=== PATIENT | male | born 1970 | race Caucasian/White ===

== ENCOUNTER 2022-10-25 09:13 | Emergency (ER) | payer OTHER ==
[~2022-10-25] VITALS: Ht 175.3 cm; Wt 71.7 kg
[2022-10-25] MEDS ORDERED: TDAP DIPH,PERTUSS,TET VAC/PF 0.5 ML DISP.SYRIN IM ONE ×2 (09:58→10:15)
[2022-10-25] MEDS ORDERED: NEOMY/BACITRA/POLYMYXIN B OINT UD PACKET TP ONE ×2 (09:58→10:15)
--- NOTE | 2022-10-25 10:16 | NUR ---
Patient discharged to home in stable condition in stable condition. Written and verbal after care instructions given to patient in [place] by ER registration staff Anika. Patient verbalized understanding and compliance of instructions. Stressed follow up with primary doctor and workman's compensation clinic or return to ER for worsening s/s.
--- NOTE | 2022-10-25 10:16 | NUR ---
Note es in EDM - 10/25/22 at 1108 by DANN Patient discharged to home in stable condition in stable condition. Written and verbal after care instructions given to patient in [place] bu ER registration staff Anika. Patient verbalized understanding and compliance of instructions. Stressed follow up with primary doctor and workman's compensation clinic or return to ER for worsening s/s.
== END 2022-10-25 10:17 | disposition home or self-care (01) ==
LOC: ER 09:18
DX: S51.812A Laceration without foreign body of left forearm, initial encounter (principal); W26.0XXA Contact with knife, initial encounter; Y93.89 Activity, other specified; Y92.511 Restaurant or cafe as the place of occurrence of the external cause; Y99.0 Civilian activity done for income or pay
CPT/HCPCS: 90715; A4663

== ENCOUNTER 2025-05-10 07:24 | Inpatient (IN) | payer MEDICAID, OTHER ==
[~2025-05-10] VITALS: Ht 170.2 cm; Wt 77.1 kg
[2025-05-10] MEDS ORDERED: HYDROMORPHONE 1 MG/1 ML DISP.SYRIN ONE ×2 (08:22→10:30)
[2025-05-10] MEDS ORDERED: diphenhydrAMINE 50 MG/1 ML VIAL ONE (08:22)
[2025-05-10] MEDS: diphenhydrAMINE 50 MG/1 ML VIAL IV ONE (08:26)
[2025-05-10] MEDS: HYDROMORPHONE 1 MG/1 ML DISP.SYRIN IV ONE ×2 (08:27→10:34)
[2025-05-10 08:28] LABS: PLATELET COUNT (AUTO) 304 K/uL (152-348); RED BLOOD CELL COUNT(AUTO) 5.68 MIL/uL (4.06-5.63); RED CELL DISTRIBUTION WIDTH 14.0 % (12.1-16.2); WHITE BLOOD COUNT (AUTO) 12.4 K/uL (3.6-10.2)
[2025-05-10 08:48] LABS: CREATININE 1.0 mg/dL (0.6-1.3); SODIUM SERUM 137 mmol/L (136-145); UREA NITROGEN, BLOOD 19 mg/dL (7-18)
[2025-05-10 08:53] LABS: ASPARTATE AMINOTRANSFERASE 6 U/L (15-37); TOTAL PROTEIN, SERUM 8.1 g/dL (6.4-8.2)
[2025-05-10 10:23] LABS: *BILIRUBIN,URIN NEGATIVE (NEGATIVE); *CLARITY,URINE CLEAR (CLEAR); *COLOR,URINE YELLOW (YELLOW); *KETONES,URINE NEGATIVE (NEGATIVE); *PROTEIN,URINE NEGATIVE (NEGATIVE); *UROBILINOGEN,URINE 0.2 E.U./dl (NORMAL); LEUKOCYTE ESTERASE ,URINE NEGATIVE (NEGATIVE); NITRITE, URINE NEGATIVE (NEGATIVE); UGLUCOSE NEGATIVE (NEGATIVE)
[2025-05-10 10:30] LABS: *BLOOD, URINE TRACE (NEGATIVE)
[2025-05-10] MEDS ORDERED: ONDANSETRON 4 MG/2 ML VIAL ONE (10:30)
[2025-05-10] MEDS: ONDANSETRON 4 MG/2 ML VIAL IV ONE (10:35)
[2025-05-10 10:41] LABS: SQUAMOUS EPITHELIAL CELL,UR FEW /HPF (NONE SEEN)
[2025-05-10] MEDS: IV NORMAL SALINE 1000 ML BAG IV ONE (11:35)
[2025-05-10] MEDS ORDERED: DIATR MEGLU/DIATRIZOATE SODIUM 30 ML BOTTLE ONE (11:55)
[2025-05-10] MEDS ORDERED: HYDR12.55 PO (14:46)
[2025-05-10] MEDS ORDERED: GEMF600T90 PO (14:46)
[2025-05-10] MEDS ORDERED: FAMO40TA7 PO (14:46)
[2025-05-10] MEDS ORDERED: BENA20TA9 PO (14:46)
[2025-05-10] MEDS ORDERED: PANT40TA49 PO (14:46)
[2025-05-10 15:35] VITALS: BP 152/90
[2025-05-10] MEDS ORDERED: ERGO500040 PO (15:49)
[2025-05-10] MEDS ORDERED: SUCR1ORA15 PO (15:50)
[2025-05-10] MEDS ORDERED: MAGNESIUM HYDROXIDE 30 ML LIQUID UDC PO PRN (16:15)
[2025-05-10] MEDS ORDERED: ONDANSETRON 4 MG/2 ML VIAL IV PRN (16:15)
[2025-05-10] MEDS ORDERED: ZOLPIDEM 5 MG TABLET PO PRN (16:15)
[2025-05-10] MEDS ORDERED: ACETAMINOPHEN 325 MG TABLET PO PRN (16:15)
[2025-05-10] MEDS ORDERED: REMEDY ESSENTIAL ZINC PASTE 113 GM TP PRN (16:15)
[2025-05-10 16:24] VITALS: BP 135/82; TEMP 98.2; O2SAT 98
[2025-05-10] MEDS: IV 1/2NS 1000 ML 1,000 ML IV PRN (16:47)
[2025-05-11 06:11] VITALS: BP 159/96; TEMP 99; O2SAT 98
[2025-05-11 07:25] LABS: PLATELET COUNT (AUTO) 257 K/uL (152-348); RED BLOOD CELL COUNT(AUTO) 4.96 MIL/uL (4.06-5.63); RED CELL DISTRIBUTION WIDTH 13.8 % (12.1-16.2); WHITE BLOOD COUNT (AUTO) 11.1 K/uL (3.6-10.2)
[2025-05-11 07:35] LABS: CREATININE 0.8 mg/dL (0.6-1.3); SODIUM SERUM 142.0 mmol/L (136-145); UREA NITROGEN, BLOOD 15.0 mg/dL (7-18)
[2025-05-11 08:00] VITALS: BP 135/53; TEMP 97.6; O2SAT 96
[2025-05-11] MEDS: POTASSIUM CHLORIDE 50 ML IV SCH (10:15)
[2025-05-11 12:00] VITALS: BP 157/92; TEMP 99.1; O2SAT 98
[2025-05-11 15:52] VITALS: BP 144/86; TEMP 98.5; O2SAT 97
[2025-05-11] MEDS: SUCRALFATE 1 G/10 ML LIQUID UDC PO SCH (17:18)
[2025-05-11] MEDS: BENAZEPRIL HCL 20 MG TABLET PO SCH (17:18)
[2025-05-11] MEDS: HYDROCHLOROTHIAZIDE 12.5 MG CAPSULE PO SCH (17:19)
[2025-05-11 19:54] VITALS: BP 126/78; TEMP 98.5; O2SAT 97
[2025-05-12 06:42] VITALS: BP 147/88; TEMP 97.6; O2SAT 99
[2025-05-12 06:50] LABS: CREATININE 0.9 mg/dL (0.6-1.3); SODIUM SERUM 142.0 mmol/L (136-145); UREA NITROGEN, BLOOD 10.0 mg/dL (7-18)
[2025-05-12] MEDS: SUCRALFATE 1 G TABLET PO SCH (07:30)
[2025-05-12 09:07] VITALS: BP 147/88
[2025-05-12] MEDS: GEMFIBROZIL 600 MG TABLET PO SCH (09:07)
[2025-05-12] MEDS ORDERED: PANTOPRAZOLE SODIUM 40 MG TABLET.DR PO SCH (17:00)
== END 2025-05-12 10:45 | disposition home or self-care (01) | DRG 247 ==
LOC: ER 07:24 → MEDSURG3 15:05
PROVIDERS: ADMIT Internal Medicine; ATTEND Internal Medicine
PROC: 0D9670Z Drainage of Stomach with Drainage Device, Via Natural or Artificial Opening (ICD-10-PCS; principal; 2025-05-10)
DX: K56.609 Unspecified intestinal obstruction, unspecified as to partial versus complete obstruction (principal); U07.1 COVID-19; E78.5 Hyperlipidemia, unspecified; I10 Essential (primary) hypertension; K21.9 Gastro-esophageal reflux disease without esophagitis; K57.30 Diverticulosis of large intestine without perforation or abscess without bleeding
CPT/HCPCS: 36415; 71045; 74018; 74250; 83690; 83735; 84100; 84484; 85025; 85730; G0378; J1171; J1200; J2405; J3480; J7040; Q9963